=== PATIENT | male | born 1955 | race Caucasian/White ===

== ENCOUNTER 2020-01-28 00:24 | Emergency (ER) | payer MEDICAID, SELFPAY ==
[~2020-01-28] VITALS: Ht 170.2 cm; Wt 102.3 kg
[~2020-01-28 00:24] MED LIST: ASPI-1265 PO; CLOP75TA35 PO; LISI10TA4 PO; NITR0.4T51 SL; SIMV-42 PO
[2020-01-28 01:07] LABS: CLARITY,URINE CLEAR (Clear); COLOR,URINE YELLOW (Yellow); GLUCOSE, URINE NEGATIVE (Neg); KETONES,URINE NEGATIVE (Neg); LEUKOCYTE ESTERASE ,URINE NEGATIVE (Neg); NITRITES, URINE NEGATIVE (Neg); OCCULT BLOOD,URINE SMALL (Neg); PH,URINE 5.5 (4.8-8.0); PROTEIN,URINE NEGATIVE (Neg); UROBILINOGEN,URINE 0.2 E.U/dL (0.2-1.0)
[2020-01-28 01:09] LABS: BASOPHILS # (AUTO) 0.1 X10'3 (0-0.2); BASOPHILS % (AUTO) 0.6 % (0-1); EOSINOPHILS % (AUTO) 0.4 % (0-6); HEMATOCRIT 44.5 % (42.0-52.0); HEMOGLOBIN 15.3 g/dl (14.0-17.9); LYMPHOCYTES # (AUTO) 1.9 X10'3 (1.1-4.8); LYMPHOCYTES % (AUTO) 19.1 % (21-51); MEAN CORPUSCULAR HEMOGLOBIN 30.3 PG (27.0-31.0); MEAN CORPUSCULAR HGB CONC 34.4 g/dL (33.0-36.5); MEAN CORPUSCULAR VOLUME 88.3 FL (78-98); MEAN PLATELET VOLUME 9.1 FL (7.4-10.4); MONOCYTES # (AUTO) 0.8 X10'3 (0-0.9); MONOCYTES % (AUTO) 7.5 % (2-12); NEUTROPHILS # (AUTO) 7.3 X10'3 (1.8-7.7); NEUTROPHILS % (AUTO) 72.4 % (42-75); PLATELET COUNT 246 X10'3 (140-440); RED BLOOD COUNT 5.05 X10'6 (4.70-6.10); RED CELL DISTRIBUTION WIDTH 13.9 % (11.5-14.5); UA COLLECTION TYPE URINAL
[2020-01-28 01:14] LABS: BACTERIA,URINE FEW /HPF (Neg); RBC,URINE 0-2 /HPF (0-2); SQUAMOUS EPITHELIAL CELL,UR FEW /LPF (FEW); WBC,URINE 0-4 /HPF (0-4)
[2020-01-28 01:17] LABS: ALANINE AMINOTRANSFERASE 51 U/L (12-78); ALBUMIN 4.3 G/DL (3.4-5.0); ALBUMIN/GLOBULIN RATIO 1.2 (1.1-1.5); ALKALINE PHOSPHATASE 83 IU/L (46-116); ANION GAP 12 (8-16); ASPARTATE AMINO TRANSFERASE 19 U/L (10-37); BILIRUBIN,TOTAL 0.7 MG/DL (0.1-1.0); BLOOD UREA NITROGEN 22 MG/DL (7-18); BUN/CREATININE RATIO 17.9 (5.4-32.0); CALCIUM 9.4 MG/DL (8.5-10.1); CHLORIDE 104 MMOL/L (99-107); CREATININE 1.23 MG/DL (0.60-1.10); GLUCOSE 155 MG/DL (70-104); LIPASE 87 U/L (73-393); POTASSIUM 3.9 MMOL/L (3.5-5.1); SODIUM 140 MMOL/L (135-145); TOTAL CARBON DIOXIDE 24.5 MMOL/L (24-32); TOTAL PROTEIN 7.9 G/DL (6.4-8.2); eGFR 59 ML/MIN
[2020-01-28] MEDS ORDERED: normal saline 1000ML IV soln IVB ONE (02:35)
[2020-01-28] MEDS ORDERED: pantoprazole 40 MG vial IV ONE (02:35)
[2020-01-28] MEDS ORDERED: morphine 4 MG/ML inj SYRINge IV ONE (02:35)
[2020-01-28] MEDS ORDERED: iohexol 300mg/ml 100ml inj. ONE (02:45)
[2020-01-28] MEDS ORDERED: ACET-3068 PO (04:54)
[2020-01-28 05:04] VITALS: BP 149/53
== END 2020-01-28 05:30 | disposition home or self-care (01) ==
LOC: ER 00:24
DX: R10.11 Right upper quadrant pain (principal); I25.10 Atherosclerotic heart disease of native coronary artery without angina pectoris; E78.00 Pure hypercholesterolemia, unspecified; I10 Essential (primary) hypertension; Z98.890 Other specified postprocedural states; Z79.82 Long term (current) use of aspirin; Z79.899 Other long term (current) drug therapy
CPT/HCPCS: 36415; 74177; 80053; 81001; 83690; 85025; 96361; 96374; 96375; 99285; C9113; J2270; J7030; Q9967

== ENCOUNTER 2020-02-08 07:20 | Inpatient (IN) | payer MEDICAID ==
[~2020-02-08] VITALS: Ht 172.7 cm; Wt 104.5 kg
[~2020-02-08 07:20] MED LIST changes: +ACET-3068 PO
[2020-02-08] MEDS ORDERED: ondansetron/PF 4mg/2ml inj IV ONE (08:00)
[2020-02-08] MEDS ORDERED: normal saline 1000ML IV soln IVB ONE ×2 (08:00→10:05)
[2020-02-08] MEDS ORDERED: famotidine/PF 10 mg/ml inj IV ONE (08:00)
[2020-02-08] MEDS ORDERED: pantoprazole 40 MG vial IV ONE (08:00)
[2020-02-08] MEDS: morphine 4 MG/ML inj SYRINge IV PRN ×2 (08:16→09:21)
[2020-02-08 08:24] LABS: BASOPHILS # (AUTO) 0.1 X10'3 (0-0.2); BASOPHILS % (AUTO) 0.5 % (0-1); EOSINOPHILS % (AUTO) 0.3 % (0-6); HEMOGLOBIN 15.4 g/dl (14.0-17.9); LYMPHOCYTES % (AUTO) 18.3 % (21-51); MEAN CORPUSCULAR HEMOGLOBIN 30.6 PG (27.0-31.0); MEAN CORPUSCULAR VOLUME 87.4 FL (78-98); MONOCYTES # (AUTO) 0.9 X10'3 (0-0.9); NEUTROPHILS % (AUTO) 72.9 % (42-75); PLATELET COUNT 282 X10'3 (140-440); RED BLOOD COUNT 5.04 X10'6 (4.70-6.10); RED CELL DISTRIBUTION WIDTH 13.4 % (11.5-14.5); WHITE BLOOD COUNT 10.9 X10'3 (4.5-11.0)
--- NOTE | 2020-02-08 08:26 | NUR ---
PT MEDICATED AND NOW US TECH IN ROOM FOR PROCEDURE
[2020-02-08 08:41] LABS: ALANINE AMINOTRANSFERASE 76 U/L (12-78); ALBUMIN 4.3 G/DL (3.4-5.0); ALBUMIN/GLOBULIN RATIO 1.3 (1.1-1.5); ALKALINE PHOSPHATASE 99 IU/L (46-116); ANION GAP 15 (8-16); ASPARTATE AMINO TRANSFERASE 23 U/L (10-37); BILIRUBIN,TOTAL 0.9 MG/DL (0.1-1.0); BLOOD UREA NITROGEN 21 MG/DL (7-18); CALCIUM 10.1 MG/DL (8.5-10.1); CHLORIDE 104 MMOL/L (99-107); CREATININE 1.31 MG/DL (0.60-1.10); GLUCOSE 155 MG/DL (70-104); LIPASE 67 U/L (73-393); POTASSIUM 3.9 MMOL/L (3.5-5.1); SODIUM 141 MMOL/L (135-145); TOTAL CARBON DIOXIDE 22.1 MMOL/L (24-32); TOTAL PROTEIN 7.7 G/DL (6.4-8.2); eGFR 55 ML/MIN
[2020-02-08] MEDS ORDERED: sincalide inj 2 MCG in normal saline 50ml IV soln 50 ML IV ONE (09:35)
[2020-02-08] MEDS ORDERED: ondansetron/PF 4mg/2ml inj IV PRN (10:15)
[2020-02-08] MEDS ORDERED: dextrose 5%-1/2 normal saline 1,000 ML IV SCH (10:15)
[2020-02-08] MEDS ORDERED: morphine 2 MG/ML inj. syringe IV PRN ×2 (10:15)
[2020-02-08] MEDS ORDERED: HYDROcodone/acetaminophen 5mg/325mg tablet PO PRN (10:15)
[2020-02-08] MEDS ORDERED: mag hydrox/Alum hydrox/simeth 30ml oral suspension PO PRN (10:15)
[2020-02-08] MEDS ORDERED: acetaminophen 325mg tablet PO PRN ×2 (10:15)
[2020-02-08] MEDS ORDERED: magnesium hydroxide 30ml (MOM) UD suspension PO PRN (10:15)
[2020-02-08] MEDS ORDERED: ATOR80TA PO (10:30)
[2020-02-08] MEDS ORDERED: LANS15CA18 PO (10:30)
[2020-02-08] MEDS ORDERED: FINA5TAB11 PO (10:30)
[2020-02-08] MEDS ORDERED: OXYB10TA4 PO (10:30)
[2020-02-08] MEDS ORDERED: FLO0.4C PO (10:30)
[2020-02-08] MEDS ORDERED: METF500T PO (10:30)
[2020-02-08] MEDS ORDERED: LISI-600 PO (10:30)
[2020-02-08] MEDS ORDERED: FLUT16SP11 BOTHNARES (10:30)
[2020-02-08] MEDS ORDERED: METO50TA7 PO (10:30)
[2020-02-08] MEDS ORDERED: HYDR12.55 PO (10:31)
[2020-02-08 10:57] LABS: TROPONIN I < 0.04 NG/ML (0.0-0.05)
[2020-02-08] MEDS ORDERED: LISI40TA4 PO (11:07)
--- NOTE | 2020-02-08 16:15 | NUR ---
PATIENT IS HAVING HIDA SCAN IN THE MORNING. PATIENT WILL BE NPO AFTER 0400 AND NO PAIN MEDS AFTER 0600, PER [facility]IC[facility] STAFF.
--- NOTE | 2020-02-08 16:33 | NUR ---
Patient on the unit from ER
[2020-02-08 16:35] VITALS: BP 143/71
[2020-02-08 16:45] LABS: HEMOGLOBIN A1C 6.4 % (4.5-6.2)
--- NOTE | 2020-02-08 18:32 | NUR ---
Problems reprioritized. Patient report given, questions answered & plan of care reviewed with Kaila FUENTES.
--- NOTE | 2020-02-08 18:37 | NUR ---
Patient in room [facility]. I have received report from Jessica FUENTES and had the opportunity to ask questions and assume patient care.
[2020-02-08 19:00] VITALS: BP 141/84
[2020-02-08 19:45] VITALS: BP 141/84
[2020-02-08] MEDS: finasteride 5mg tablet PO SCH (22:25)
[2020-02-08] MEDS: oxybutynin 5mg tablet PO SCH (22:25)
[2020-02-08] MEDS: atorvastatin 20mg tablet PO SCH (22:25)
[2020-02-08 23:00] VITALS: BP 115/82
[2020-02-09 06:04] LABS: BASOPHILS % (AUTO) 0.3 % (0-1); EOSINOPHILS % (AUTO) 0 % (0-6); HEMOGLOBIN 13.8 g/dl (14.0-17.9); LYMPHOCYTES # (AUTO) 1.2 X10'3 (1.1-4.8); LYMPHOCYTES % (AUTO) 11.4 % (21-51); MEAN CORPUSCULAR HEMOGLOBIN 29.8 PG (27.0-31.0); MEAN CORPUSCULAR HGB CONC 33.8 g/dL (33.0-36.5); MEAN CORPUSCULAR VOLUME 88.1 FL (78-98); MEAN PLATELET VOLUME 8.8 FL (7.4-10.4); MONOCYTES # (AUTO) 1.3 X10'3 (0-0.9); MONOCYTES % (AUTO) 12.3 % (2-12); NEUTROPHILS # (AUTO) 8.3 X10'3 (1.8-7.7); PLATELET COUNT 237 X10'3 (140-440); RED BLOOD COUNT 4.65 X10'6 (4.70-6.10); RED CELL DISTRIBUTION WIDTH 13.6 % (11.5-14.5); WHITE BLOOD COUNT 10.9 X10'3 (4.5-11.0)
[2020-02-09 06:33] LABS: ALANINE AMINOTRANSFERASE 579 U/L (12-78); ALBUMIN 3.3 G/DL (3.4-5.0); ALKALINE PHOSPHATASE 162 IU/L (46-116); ANION GAP 9 (8-16); ASPARTATE AMINO TRANSFERASE 352 U/L (10-37); BILIRUBIN,TOTAL 4.4 MG/DL (0.1-1.0); BLOOD UREA NITROGEN 15 MG/DL (7-18); BUN/CREATININE RATIO 13.8 (5.4-32.0); CALCIUM 8.6 MG/DL (8.5-10.1); CHLORIDE 109 MMOL/L (99-107); CREATININE 1.09 MG/DL (0.60-1.10); GLUCOSE 113 MG/DL (70-104); POTASSIUM 3.5 MMOL/L (3.5-5.1); SODIUM 142 MMOL/L (135-145); TOTAL CARBON DIOXIDE 24.3 MMOL/L (24-32); eGFR 68 ML/MIN
[2020-02-09 06:34] LABS: TOTAL PROTEIN 6.5 G/DL (6.4-8.2)
--- NOTE | 2020-02-09 06:46 | NUR ---
Problems reprioritized. Patient report given, questions answered & plan of care reviewed with perry RN.
[2020-02-09 08:00] VITALS: BP 123/66
[2020-02-09] MEDS: aspirin 81mg tab.chew PO SCH (08:00)
[2020-02-09] MEDS ORDERED: non-formulary drug (Oxybutynin Chloride (Ditropan Xl) 1 TAB) PO SCH (08:00)
[2020-02-09] MEDS: metoprolol succinate 25mg (24-HOUR) SR. Tablet PO SCH (08:00)
[2020-02-09] MEDS: tamsulosin 0.4mg capsule PO SCH (08:00)
[2020-02-09] MEDS: oxybutynin 5mg tablet PO SCH ×2 (08:00→20:30)
[2020-02-09] MEDS: HYDROchlorothiazide 12.5mg capsule PO SCH (08:00)
[2020-02-09] MEDS: lisinopril 20mg tablet PO SCH (08:00)
[2020-02-09] MEDS: piperacillin/tazo 4.5gm/100ml 100 ML IV SCH ×2 (09:52→16:16)
[2020-02-09 11:00] VITALS: BP 131/65
--- NOTE | 2020-02-09 12:59 | NUR ---
Nutrition consult: Pt with A1c 6.4%, DM education not warranted at this time. Pt denied wt loss or decrease in appetite per malnutrition risk screen with RN. Pt currently NPO. Will continue to follow. Addendum: 02/09/20 at [address] Amended: Links added.
--- NOTE | 2020-02-09 18:24 | NUR ---
Problems reprioritized. Patient report given, questions answered & plan of care reviewed with Xander FUENTES.
--- NOTE | 2020-02-09 18:30 | NUR ---
Patient in room [facility]. I have received report from ROBERT FUENTES and had the opportunity to ask questions and assume patient care.
[2020-02-09 20:00] VITALS: BP 152/74
[2020-02-09] MEDS: lactobacillus rhamnosus 10,000 MMU CELLS/CAPSULE PO SCH (20:30)
[2020-02-09] MEDS: atorvastatin 20mg tablet PO SCH (20:30)
[2020-02-09] MEDS: finasteride 5mg tablet PO SCH (20:30)
[2020-02-10] VITALS (20 sets, daily range): BP systolic 131–177; BP diastolic 63–93
[2020-02-10] MEDS: piperacillin/tazo 4.5gm/100ml 100 ML IV SCH ×4 (00:30→23:57)
[2020-02-10 06:01] LABS: BASOPHILS # (AUTO) 0.1 X10'3 (0-0.2); BASOPHILS % (AUTO) 0.6 % (0-1); EOSINOPHILS % (AUTO) 0.1 % (0-6); HEMOGLOBIN 14.4 g/dl (14.0-17.9); LYMPHOCYTES % (AUTO) 9.2 % (21-51); MEAN CORPUSCULAR HEMOGLOBIN 30.3 PG (27.0-31.0); MEAN CORPUSCULAR HGB CONC 34.2 g/dL (33.0-36.5); MEAN CORPUSCULAR VOLUME 88.6 FL (78-98); MEAN PLATELET VOLUME 8.7 FL (7.4-10.4); MONOCYTES # (AUTO) 1.2 X10'3 (0-0.9); NEUTROPHILS # (AUTO) 8.3 X10'3 (1.8-7.7); NEUTROPHILS % (AUTO) 79.1 % (42-75); PLATELET COUNT 240 X10'3 (140-440); RED BLOOD COUNT 4.75 X10'6 (4.70-6.10); RED CELL DISTRIBUTION WIDTH 13.8 % (11.5-14.5); WHITE BLOOD COUNT 10.5 X10'3 (4.5-11.0)
[2020-02-10 06:21] LABS: ALANINE AMINOTRANSFERASE 553 U/L (12-78); ALBUMIN 3.4 G/DL (3.4-5.0); ALBUMIN/GLOBULIN RATIO 0.9 (1.1-1.5); ALKALINE PHOSPHATASE 196 IU/L (46-116); ANION GAP 9 (8-16); ASPARTATE AMINO TRANSFERASE 260 U/L (10-37); BILIRUBIN,TOTAL 2.9 MG/DL (0.1-1.0); BLOOD UREA NITROGEN 13 MG/DL (7-18); BUN/CREATININE RATIO 10.2 (5.4-32.0); CALCIUM 9.3 MG/DL (8.5-10.1); CHLORIDE 107 MMOL/L (99-107); CREATININE 1.28 MG/DL (0.60-1.10); GLUCOSE 119 MG/DL (70-104); POTASSIUM 3.6 MMOL/L (3.5-5.1); SODIUM 141 MMOL/L (135-145); TOTAL CARBON DIOXIDE 24.6 MMOL/L (24-32); TOTAL PROTEIN 7.1 G/DL (6.4-8.2); eGFR 57 ML/MIN
--- NOTE | 2020-02-10 06:30 | NUR ---
Problems reprioritized. Patient report given, questions answered & plan of care reviewed with ROBERT RN.
--- NOTE | 2020-02-10 06:55 | NUR ---
Patient in room [facility]. I have received report from Xander FUENTES and had the opportunity to ask questions and assume patient care.
[2020-02-10] MEDS: oxybutynin 5mg tablet PO SCH ×2 (08:00→21:22)
[2020-02-10] MEDS: lactobacillus rhamnosus 10,000 MMU CELLS/CAPSULE PO SCH ×2 (08:00→21:22)
[2020-02-10] MEDS: finasteride 5mg tablet PO SCH (08:00)
[2020-02-10] MEDS: tamsulosin 0.4mg capsule PO SCH (08:00)
[2020-02-10] MEDS: HYDROchlorothiazide 12.5mg capsule PO SCH (08:00)
[2020-02-10] MEDS: lisinopril 20mg tablet PO SCH (08:00)
[2020-02-10] MEDS: aspirin 81mg tab.chew PO SCH (08:00)
[2020-02-10] MEDS: metoprolol succinate 25mg (24-HOUR) SR. Tablet PO SCH (08:00)
[2020-02-10] MEDS ORDERED: famotidine/PF 10 mg/ml inj IV ONE (09:55)
[2020-02-10 10:14] LABS: PARTIAL THROMBOPLASTIN TIME 26 SECONDS (22-32)
[2020-02-10] MEDS ORDERED: meperidine/PF 25mg/ml syringe IV PRN ×3 (15:30)
[2020-02-10] MEDS ORDERED: proCHLORperazine 10 MG/2 ml inj IV PRN (15:30)
[2020-02-10] MEDS ORDERED: morphine 2 MG/ML inj. syringe IV PRN (15:30)
[2020-02-10] MEDS ORDERED: ondansetron/PF 4mg/2ml inj IV PRN (15:30)
[2020-02-10] MEDS ORDERED: morphine 4 MG/ML inj SYRINge IV PRN (15:30)
[2020-02-10] MEDS ORDERED: ringers solution, lacted 1,000 ML IV SCH (15:30)
--- NOTE | 2020-02-10 16:16 | NUR ---
Report called to recover on this patient at this time.
[2020-02-10] MEDS ORDERED: BUPIVAcaine/PF 2.5 mg/ml (0.25%) 30ml vial ONE (16:38)
[2020-02-10] MEDS ORDERED: dexamethasone sod phosphate 10mg/ml inj ONE (16:47)
[2020-02-10] MEDS ORDERED: neostigmine methylsulfate 1 MG/ML 10ml vial ONE (16:47)
[2020-02-10] MEDS ORDERED: glycopyrrolate 0.2mg/ml inj ONE (16:47)
[2020-02-10] MEDS ORDERED: sevoflurane 250ml liquid IH ONE (16:47)
[2020-02-10] MEDS ORDERED: midazolam 2 mg/2 ml injection ONE (16:54)
[2020-02-10] MEDS ORDERED: LIDOcaine 2% (20mg/ml) 5ml vial ONE (16:55)
[2020-02-10] MEDS ORDERED: fentaNYL /PF 50mcg/ml 5ml ampule ONE (16:55)
[2020-02-10] MEDS ORDERED: propofol inj 20 ML IV ONE (16:55)
[2020-02-10] MEDS ORDERED: rocuronium 10mg/ml inj IV ONE (16:56)
[2020-02-10] MEDS ORDERED: ondansetron/PF 4mg/2ml inj ONE (17:10)
[2020-02-10] MEDS ORDERED: acetaminophen 1,000mg/100ml IV 100 ML IV ONE (18:08)
--- NOTE | 2020-02-10 18:28 | NUR ---
Received from OR via BED, accompanied by Anesthesiologist DR BARBER and report given by Anesthesiologist. PT DROWSY, DENIES PAIN, ABDOMEN W/4 LAP SITES W/MEDIPORE TAPE COVERING CDI. Addendum: 02/10/20 at 1935 by Raina Charlton RN Amended: Links added.
--- NOTE | 2020-02-10 18:50 | NUR ---
Problems reprioritized. Patient report given, questions answered & plan of care reviewed with Ashlyn FUENTES.
--- NOTE | 2020-02-10 20:08 | NUR ---
Report called to receiving nurse. Transferred via BED BY HUNTER GUERRERO, RECEIVING RN AT BEDSIDE TO RECEIVE PT. Special Issues communicated to receiving nurse. YES. Addendum: 02/10/20 at 2014 by Raina Charlton RN Amended: Links added.
[2020-02-10] MEDS: atorvastatin 20mg tablet PO SCH (21:22)
[2020-02-10] MEDS: HYDROcodone/acetaminophen 10/325mg tab PO PRN (22:23)
[2020-02-11] VITALS: BP_SYST 162; BP_SYST 167; BP_DIAS 83; BP_DIAS 88
[2020-02-11] MEDS ORDERED: normal saline 1000ml 1,000 ML IV SCH (02:00)
[2020-02-11 04:00] VITALS: BP 153/70
[2020-02-11] MEDS: HYDROcodone/acetaminophen 10/325mg tab PO PRN (04:44)
[2020-02-11 05:46] LABS: BASOPHILS % (AUTO) 0.1 % (0-1); EOSINOPHILS % (AUTO) 0 % (0-6); HEMOGLOBIN 14.5 g/dl (14.0-17.9); LYMPHOCYTES # (AUTO) 0.6 X10'3 (1.1-4.8); LYMPHOCYTES % (AUTO) 5.3 % (21-51); MEAN CORPUSCULAR HEMOGLOBIN 30.4 PG (27.0-31.0); MEAN CORPUSCULAR HGB CONC 34.4 g/dL (33.0-36.5); MEAN CORPUSCULAR VOLUME 88.5 FL (78-98); MEAN PLATELET VOLUME 9.1 FL (7.4-10.4); MONOCYTES # (AUTO) 0.8 X10'3 (0-0.9); MONOCYTES % (AUTO) 8.1 % (2-12); NEUTROPHILS % (AUTO) 86.5 % (42-75); PLATELET COUNT 230 X10'3 (140-440); RED BLOOD COUNT 4.75 X10'6 (4.70-6.10); RED CELL DISTRIBUTION WIDTH 13.6 % (11.5-14.5); WHITE BLOOD COUNT 10.4 X10'3 (4.5-11.0)
[2020-02-11 06:10] LABS: ALANINE AMINOTRANSFERASE 461 U/L (12-78); ALBUMIN/GLOBULIN RATIO 0.7 (1.1-1.5); ALKALINE PHOSPHATASE 194 IU/L (46-116); ANION GAP 9 (8-16); ASPARTATE AMINO TRANSFERASE 215 U/L (10-37); BILIRUBIN,TOTAL 1.6 MG/DL (0.1-1.0); BLOOD UREA NITROGEN 16 MG/DL (7-18); BUN/CREATININE RATIO 14.4 (5.4-32.0); CALCIUM 8.6 MG/DL (8.5-10.1); CHLORIDE 107 MMOL/L (99-107); CREATININE 1.11 MG/DL (0.60-1.10); GLUCOSE 151 MG/DL (70-104); POTASSIUM 3.9 MMOL/L (3.5-5.1); SODIUM 141 MMOL/L (135-145); TOTAL CARBON DIOXIDE 25.3 MMOL/L (24-32); TOTAL PROTEIN 7.1 G/DL (6.4-8.2); eGFR 67 ML/MIN
[2020-02-11 07:00] VITALS: BP 144/67
[2020-02-11] MEDS: lactobacillus rhamnosus 10,000 MMU CELLS/CAPSULE PO SCH (07:07)
[2020-02-11] MEDS: aspirin 81mg tab.chew PO SCH (07:07)
[2020-02-11] MEDS: piperacillin/tazo 4.5gm/100ml 100 ML IV SCH (07:07)
[2020-02-11] MEDS: metoprolol succinate 25mg (24-HOUR) SR. Tablet PO SCH (07:09)
[2020-02-11] MEDS: lisinopril 20mg tablet PO SCH (07:09)
[2020-02-11] MEDS: HYDROchlorothiazide 12.5mg capsule PO SCH (07:09)
[2020-02-11] MEDS: oxybutynin 5mg tablet PO SCH (08:00)
[2020-02-11] MEDS: finasteride 5mg tablet PO SCH (08:00)
[2020-02-11] MEDS ORDERED: HYDR-4383 PO (09:07)
--- NOTE | 2020-02-11 10:06 | NUR ---
Problems reprioritized. Patient report given, questions answered & plan of care reviewed with Letty FUENTES.
--- NOTE | 2020-02-11 10:15 | NUR ---
Patient in room [facility]. I have received report from ALFREDO Hill, and had the opportunity to ask questions and assume patient care.
[2020-02-11] MEDS: tamsulosin 0.4mg capsule PO SCH (10:44)
[2020-02-11 11:00] VITALS: BP 117/63
[2020-02-11] MEDS ORDERED: finasteride 5mg tablet PO SCH (21:00)
== END 2020-02-11 15:23 | disposition home or self-care (01) | DRG 263 ==
LOC: ER 07:21 → ED HOLD 10:14 → SUR 3N 16:28 → OBSVTOIN 02-09 09:30
PROVIDERS: ADMIT Internal Medicine; ATTEND Internal Medicine
PROC: 0FT44ZZ Resection of Gallbladder, Percutaneous Endoscopic Approach (ICD-10-PCS; principal; 2020-02-10 16:47)
DX: K80.70 Calculus of gallbladder and bile duct without cholecystitis without obstruction (principal); E11.65 Type 2 diabetes mellitus with hyperglycemia; E78.00 Pure hypercholesterolemia, unspecified; E78.5 Hyperlipidemia, unspecified; I10 Essential (primary) hypertension; I25.10 Atherosclerotic heart disease of native coronary artery without angina pectoris; I25.2 Old myocardial infarction; Z79.899 Other long term (current) drug therapy; N28.9 Disorder of kidney and ureter, unspecified; N40.0 Benign prostatic hyperplasia without lower urinary tract symptoms; Z79.82 Long term (current) use of aspirin; Z79.84 Long term (current) use of oral hypoglycemic drugs; Z83.3 Family history of diabetes mellitus; Z87.891 Personal history of nicotine dependence; Z90.49 Acquired absence of other specified parts of digestive tract; Z95.5 Presence of coronary angioplasty implant and graft
CPT/HCPCS: 36415; 71045; 74181; 76700; 80053; 82948; 83036; 83605; 83690; 83880; 84484; 85025; 85610; 85730; 87081; 87635; 93005; 96374; 96375; 99285; A4215; A4618; A7000; C9113; G0378; J0131; J1100; J2001; J2175; J2250; J2270; J2405; J2543; J2704; J2710; J3010; J3490; J7030; J7120

== ENCOUNTER 2020-07-25 07:48 | Emergency (ER) | payer MEDICAID ==
[~2020-07-25] VITALS: Ht 170.2 cm; Wt 98.4 kg
[~2020-07-25 07:48] MED LIST changes: -ACET-3068 PO; +ATOR80TA PO; -CLOP75TA35 PO; +FINA5TAB11 PO; +FLO0.4C PO; +FLUT16SP11 BOTHNARES; +HYDR-4383 PO; +HYDR12.55 PO; +LANS15CA18 PO; -LISI10TA4 PO; +LISI40TA13 PO; +METF500T PO; +METO50TA7 PO; +OXYB10TA4 PO; -SIMV-42 PO
[2020-07-25 08:58] LABS: CLARITY,URINE CLEAR (Clear); COLOR,URINE YELLOW (Yellow); GLUCOSE, URINE NEGATIVE (Neg); KETONES,URINE NEGATIVE (Neg); LEUKOCYTE ESTERASE ,URINE NEGATIVE (Neg); NITRITES, URINE NEGATIVE (Neg); OCCULT BLOOD,URINE TRACE-INTACT (Neg); PROTEIN,URINE NEGATIVE (Neg); UROBILINOGEN,URINE 0.2 E.U/dL (0.2-1.0)
[2020-07-25 09:05] LABS: UA COLLECTION TYPE NON-SPECIFIED
[2020-07-25 09:08] LABS: SQUAMOUS EPITHELIAL CELL,UR FEW /LPF (FEW)
[2020-07-25 09:09] LABS: BACTERIA,URINE FEW /HPF (Neg); RBC,URINE 0-2 /HPF (0-2); WBC,URINE 0-4 /HPF (0-4)
[2020-07-25 09:14] LABS: BASOPHILS # (AUTO) 0.1 X10'3 (0-0.2); EOSINOPHILS # (AUTO) 0.1 X10'3 (0-0.9); EOSINOPHILS % (AUTO) 1.7 % (0-6); HEMATOCRIT 47.9 % (42.0-52.0); HEMOGLOBIN 16.2 g/dl (14.0-17.9); LYMPHOCYTES # (AUTO) 2.2 X10'3 (1.1-4.8); LYMPHOCYTES % (AUTO) 37.3 % (21-51); MEAN CORPUSCULAR HEMOGLOBIN 29.9 PG (27.0-31.0); MEAN CORPUSCULAR HGB CONC 33.9 g/dL (33.0-36.5); MEAN CORPUSCULAR VOLUME 88.2 FL (78-98); MEAN PLATELET VOLUME 9.1 FL (7.4-10.4); MONOCYTES # (AUTO) 0.7 X10'3 (0-0.9); MONOCYTES % (AUTO) 11.5 % (2-12); NEUTROPHILS # (AUTO) 2.9 X10'3 (1.8-7.7); NEUTROPHILS % (AUTO) 48.5 % (42-75); PLATELET COUNT 220 X10'3 (140-440); RED BLOOD COUNT 5.43 X10'6 (4.70-6.10); RED CELL DISTRIBUTION WIDTH 13.8 % (11.5-14.5)
--- NOTE | 2020-07-25 09:44 | NUR ---
PT DIDNT TAKE BP MEDICATION TODAY.
[2020-07-25 10:02] LABS: ALANINE AMINOTRANSFERASE 47 U/L (12-78); ALBUMIN 3.9 G/DL (3.4-5.0); ALBUMIN/GLOBULIN RATIO 1.1 (1.1-1.5); ALKALINE PHOSPHATASE 74 IU/L (46-116); ANION GAP 12 (8-16); ASPARTATE AMINO TRANSFERASE 22 U/L (10-37); BILIRUBIN,TOTAL 0.8 MG/DL (0.1-1.0); BLOOD UREA NITROGEN 20 MG/DL (7-18); BUN/CREATININE RATIO 17.9 (5.4-32.0); CHLORIDE 106 MMOL/L (99-107); CREATININE 1.12 MG/DL (0.60-1.10); GLUCOSE 106 MG/DL (70-104); POTASSIUM 3.8 MMOL/L (3.5-5.1); SODIUM 144 MMOL/L (135-145); TOTAL CARBON DIOXIDE 26.1 MMOL/L (24-32); TOTAL PROTEIN 7.5 G/DL (6.4-8.2); eGFR 66 ML/MIN
[2020-07-25 10:07] LABS: LIPASE 62 U/L (73-393)
[2020-07-25] MEDS ORDERED: IBUP-1984 PO (10:31)
[2020-07-25] MEDS ORDERED: CYCL-1 PO (10:31)
[2020-07-25 11:01] VITALS: BP 141/61
== END 2020-07-25 11:03 | disposition home or self-care (01) ==
LOC: ER 07:49
DX: R10.84 Generalized abdominal pain (principal); K59.00 Constipation, unspecified; I25.10 Atherosclerotic heart disease of native coronary artery without angina pectoris; E78.00 Pure hypercholesterolemia, unspecified; I10 Essential (primary) hypertension; E11.9 Type 2 diabetes mellitus without complications; Z98.890 Other specified postprocedural states; Z79.82 Long term (current) use of aspirin; Z79.899 Other long term (current) drug therapy
CPT/HCPCS: 36415; 74176; 80053; 81001; 83690; 85025; 99284

== ENCOUNTER 2021-11-02 14:04 | Emergency (ER) | payer MEDICARE, MEDICAID ==
[~2021-11-02] VITALS: Ht 170.2 cm; Wt 100.0 kg
[~2021-11-02 14:04] MED LIST changes: +CYCL-1 PO
[2021-11-02 14:18] VITALS: BP 132/76
[2021-11-02 15:42] LABS: BASOPHILS # (AUTO) 0.1 X10'3 (0-0.2); BASOPHILS % (AUTO) 0.8 % (0-1); EOSINOPHILS % (AUTO) 0.4 % (0-6); HEMATOCRIT 48.2 % (42.0-52.0); HEMOGLOBIN 16.3 g/dl (14.0-17.9); LYMPHOCYTES # (AUTO) 1.3 X10'3 (1.1-4.8); LYMPHOCYTES % (AUTO) 17.6 % (21-51); MEAN CORPUSCULAR HEMOGLOBIN 29.7 PG (27.0-31.0); MEAN CORPUSCULAR HGB CONC 33.8 g/dL (33.0-36.5); MEAN CORPUSCULAR VOLUME 87.9 FL (78-98); MEAN PLATELET VOLUME 9.1 FL (7.4-10.4); MONOCYTES # (AUTO) 1.1 X10'3 (0-0.9); MONOCYTES % (AUTO) 14.7 % (2-12); NEUTROPHILS % (AUTO) 66.5 % (42-75); PLATELET COUNT 236 X10'3 (140-440); RED BLOOD COUNT 5.49 X10'6 (4.70-6.10); RED CELL DISTRIBUTION WIDTH 13.5 % (11.5-14.5); WHITE BLOOD COUNT 7.5 X10'3 (4.5-11.0)
[2021-11-02 16:00] LABS: ALBUMIN 4.2 G/DL (3.4-5.0); ALKALINE PHOSPHATASE 235 IU/L (46-116); ANION GAP 9 (8-16); ASPARTATE AMINO TRANSFERASE 470 U/L (10-37); BILIRUBIN,TOTAL 3.7 MG/DL (0.1-1.0); BLOOD UREA NITROGEN 15 MG/DL (7-18); BUN/CREATININE RATIO 12.5 (5.4-32.0); CALCIUM 9.2 MG/DL (8.5-10.1); CHLORIDE 100 MMOL/L (99-107); GLUCOSE 122 MG/DL (70-104); LIPASE 136 U/L (73-393); POTASSIUM 3.6 MMOL/L (3.5-5.1); SODIUM 138 MMOL/L (135-145); TOTAL CARBON DIOXIDE 28.7 MMOL/L (24-32); TOTAL PROTEIN 8.4 G/DL (6.4-8.2); eGFR 61 ML/MIN
[2021-11-02 16:01] LABS: ALANINE AMINOTRANSFERASE 1121 U/L (12-78)
--- NOTE | 2021-11-02 19:39 | NUR ---
PT LEFT PER REGISTRATION
== END 2021-11-02 19:41 | disposition left against medical advice (07) ==
LOC: ER 14:04
DX: R10.13 Epigastric pain (principal); Z53.21 Procedure and treatment not carried out due to patient leaving prior to being seen by health care provider
CPT/HCPCS: 36415; 74176; 80053; 83690; 84484; 85025

== ENCOUNTER 2023-10-09 10:37 | Day surgery (SDC) | payer MEDICARE, MEDICAID ==
[2023-10-09] VITALS (10 sets, daily range): BP systolic 126–144; BP diastolic 62–84; PULSE 62–85; RESP 12–14; TEMP 98.4; O2SAT 93–98
[~2023-10-09] VITALS: Ht 170.2 cm; Wt 101.7 kg
[~2023-10-09 10:37] MED LIST changes: -CYCL-1 PO; -FINA5TAB11 PO; +HYDR-3965 PO; -HYDR-4383 PO; -HYDR12.55 PO; -LANS15CA18 PO; -METF500T PO; -METO50TA7 PO; -OXYB10TA4 PO
[2023-10-09] MEDS: normal saline 1,000 ML IV SCH (10:55)
[2023-10-09] MEDS ORDERED: nitroGLYCERIN 0.4mg SUBLingual tab SL PRN ×2 (10:55→15:35)
[2023-10-09 11:34] LABS: BASOPHILS # (AUTO) 0.1 X10'3 (0-0.2); EOSINOPHILS # (AUTO) 0.1 X10'3 (0-0.9); LYMPHOCYTES # (AUTO) 2.3 X10'3 (1.1-4.8); MEAN CORPUSCULAR HEMOGLOBIN 29.4 PG (27.0-31.0); NEUTROPHILS # (AUTO) 3.2 X10'3 (1.8-7.7)
[2023-10-09 11:35] LABS: BASOPHILS % (AUTO) 1.3 % (0-1); EOSINOPHILS % (AUTO) 1.3 % (0-6); HEMATOCRIT 46.4 % (42.0-52.0); HEMOGLOBIN 15.4 g/dl (14.0-17.9); LYMPHOCYTES % (AUTO) 36.6 % (21-51); MEAN CORPUSCULAR HGB CONC 33.1 g/dL (33.0-36.5); MEAN CORPUSCULAR VOLUME 88.7 FL (78-98); MEAN PLATELET VOLUME 8.4 FL (7.4-10.4); MONOCYTES # (AUTO) 0.6 X10'3 (0-0.9); MONOCYTES % (AUTO) 10.2 % (2-12); NEUTROPHILS % (AUTO) 50.6 % (42-75); PLATELET COUNT 237 X10'3 (140-440); RED BLOOD COUNT 5.23 X10'6 (4.70-6.10); RED CELL DISTRIBUTION WIDTH 13.4 % (11.5-14.5); WHITE BLOOD COUNT 6.2 X10'3 (4.5-11.0)
[2023-10-09 11:43] LABS: ALBUMIN 4.1 G/DL (3.4-5.0); ANION GAP 6 (8-16); BLOOD UREA NITROGEN 16 MG/DL (7-18); BUN/CREATININE RATIO 13.6 (10.0-20.0); CALCIUM 9.2 MG/DL (8.5-10.1); CHLORIDE 105 MMOL/L (99-107); CREATININE 1.18 MG/DL (0.60-1.10); GLUCOSE 126 MG/DL (70-104); POTASSIUM 3.9 MMOL/L (3.5-5.1); SODIUM 138 MMOL/L (135-145); TOTAL CARBON DIOXIDE 27.1 MMOL/L (24-32); eCRCL 57 ML/MIN; eGFR 62 ML/MIN
[2023-10-09 11:47] LABS: APTT 26 SECONDS (22-32); PROTHROMBIN TIME 10.7 SECONDS (9.0-12.0)
[2023-10-09] MEDS ORDERED: LISI20TA28 PO (11:51)
[2023-10-09] MEDS ORDERED: FINA5TAB11 PO (11:53)
[2023-10-09] MEDS ORDERED: HYDR12.55 PO (11:53)
[2023-10-09] MEDS ORDERED: MIRA50TA PO (11:53)
[2023-10-09] MEDS ORDERED: PANT20TA18 PO (11:55)
[2023-10-09] MEDS ORDERED: ATOR40TA72 PO (11:55)
[2023-10-09] MEDS ORDERED: METF-1203 PO (11:55)
[2023-10-09] MEDS ORDERED: FLUT16SP26 (11:55)
[2023-10-09] MEDS ORDERED: NITR0.4T48 (11:56)
[2023-10-09] MEDS ORDERED: FLO0.4C (11:57)
[2023-10-09] MEDS: LORazepam 0.5 MG tablet PO PRN (12:22)
[2023-10-09] MEDS: diphenhydrAMINE 25mg capsule PO PRN (12:22)
[2023-10-09] MEDS ORDERED: fentaNYL/PF 50MCG/1 ML 2ML syringe ONE (13:35)
[2023-10-09] MEDS ORDERED: LIDOcaine 1% 30ml preserv. free vial ONE (13:35)
[2023-10-09] MEDS ORDERED: iohexol 350MG/ML 100ml bottle IV ONE (13:35)
[2023-10-09] MEDS ORDERED: iohexol 350 MG/ML 50ML vial IV ONE ×2 (13:35→14:39)
[2023-10-09] MEDS ORDERED: midazolam 1 mg/ML 2ml injection ONE (13:35)
[2023-10-09 14:51] LABS: PRO BRAIN NATRIURETIC PEPTIDE 76 PG/ML (0-125)
[2023-10-09 14:59] LABS: ISTAT HGB ART 14.3 g/dl (14.0-17.9); ISTAT Hct ART 42 %PCV (42-52); ISTAT O2 SATURATION ARTERIAL 96 % (95-98); ISTAT SOURCE ART
[2023-10-09] MEDS ORDERED: HYDROcodone/acetaminophen 5mg/325mg tablet PO PRN (15:35)
[2023-10-09] MEDS ORDERED: normal saline 1000ml 1,000 ML IV SCH (15:35)
[2023-10-09] MEDS ORDERED: HYDROcodone/acetaminophen 10/325mg tab PO PRN (15:35)
[2023-10-09] MEDS ORDERED: ondansetron/PF 4mg/2ml inj IV PRN (15:35)
[2023-10-09] MEDS ORDERED: OXAZEpam 15mg capsule PO PRN (15:35)
[2023-10-09] MEDS ORDERED: proCHLORperazine 10 MG/2 ml inj IV PRN (15:35)
== END 2023-10-09 19:55 | disposition home or self-care (01) ==
LOC: SSTAY O 10:37
PROVIDERS: ATTEND Internal Medicine Cardiovascular Disease
DX: I35.0 Nonrheumatic aortic (valve) stenosis (principal); I25.10 Atherosclerotic heart disease of native coronary artery without angina pectoris; I10 Essential (primary) hypertension; E78.5 Hyperlipidemia, unspecified; E66.9 Obesity, unspecified; Z86.73 Personal history of transient ischemic attack (TIA), and cerebral infarction without residual deficits; Z68.35 Body mass index [BMI] 35.0-35.9, adult
CPT/HCPCS: 36415; 71046; 80048; 82803; 82948; 83880; 84484; 85014; 85025; 85610; 85730; 93005; 93460; 93567; 93880; 99152; 99153; A6258; C1751; C1760; C1769; J1644; J2001; J2250; J3010; J7030; Q0163; Q9967; Z7610; J3490

== ENCOUNTER 2023-11-05 09:28 | Outpatient (CLI) | payer MEDICARE, MEDICAID ==
[~2023-11-05 09:28] MED LIST changes: +ATOR40TA72 PO; -ATOR80TA PO; +FINA5TAB11 PO; +FLO0.4C; -FLO0.4C PO; -FLUT16SP11 BOTHNARES; +FLUT16SP26; -HYDR-3965 PO; +HYDR12.55 PO; +LISI20TA28 PO; -LISI40TA13 PO; +METF-1203 PO; +MIRA50TA PO; +NITR0.4T48; -NITR0.4T51 SL; +PANT20TA18 PO
[2023-11-05 10:11] LABS: BASOPHILS # (AUTO) 0.1 X10'3 (0-0.2); EOSINOPHILS # (AUTO) 0.1 X10'3 (0-0.9); EOSINOPHILS % (AUTO) 1.1 % (0-6); HEMATOCRIT 45.2 % (42.0-52.0); HEMOGLOBIN 15.2 g/dl (14.0-17.9); LYMPHOCYTES # (AUTO) 1.8 X10'3 (1.1-4.8); LYMPHOCYTES % (AUTO) 28.8 % (21-51); MEAN CORPUSCULAR HEMOGLOBIN 29.8 PG (27.0-31.0); MEAN CORPUSCULAR HGB CONC 33.7 g/dL (33.0-36.5); MEAN CORPUSCULAR VOLUME 88.2 FL (78-98); MEAN PLATELET VOLUME 8.3 FL (7.4-10.4); MONOCYTES # (AUTO) 0.7 X10'3 (0-0.9); MONOCYTES % (AUTO) 10.6 % (2-12); NEUTROPHILS # (AUTO) 3.6 X10'3 (1.8-7.7); NEUTROPHILS % (AUTO) 58.5 % (42-75); PLATELET COUNT 228 X10'3 (140-440); RED BLOOD COUNT 5.12 X10'6 (4.70-6.10); RED CELL DISTRIBUTION WIDTH 13.7 % (11.5-14.5); WHITE BLOOD COUNT 6.2 X10'3 (4.5-11.0)
[2023-11-05 10:12] LABS: APTT 25 SECONDS (22-32); INR 0.9 INR; PROTHROMBIN TIME 10.2 SECONDS (9.0-12.0)
[2023-11-05 10:23] LABS: ALANINE AMINOTRANSFERASE 51 U/L (12-78); ALBUMIN 3.9 G/DL (3.4-5.0); ALBUMIN/GLOBULIN RATIO 1.1 (1.1-1.5); ALKALINE PHOSPHATASE 66 IU/L (46-116); ANION GAP 11 (8-16); ASPARTATE AMINO TRANSFERASE 25 U/L (10-37); BILIRUBIN,TOTAL 0.7 MG/DL (0.1-1.0); BLOOD UREA NITROGEN 22 MG/DL (7-18); BUN/CREATININE RATIO 17.5 (10.0-20.0); CALCIUM 9.2 MG/DL (8.5-10.1); CHLORIDE 104 MMOL/L (99-107); CREATININE 1.26 MG/DL (0.60-1.10); GLUCOSE 167 MG/DL (70-104); POTASSIUM 4.2 MMOL/L (3.5-5.1); PRO BRAIN NATRIURETIC PEPTIDE 70 PG/ML (0-125); SODIUM 141 MMOL/L (135-145); TOTAL CARBON DIOXIDE 25.9 MMOL/L (24-32); TOTAL PROTEIN 7.4 G/DL (6.4-8.2); eGFR 57 ML/MIN
[2023-11-05] MEDS ORDERED: IODIXANOL 320 MG/ML INFUS..BTL 100ML IV ONE (10:45)
== END 2023-11-05 23:59 | disposition home or self-care (01) ==
LOC: RAD 09:28
PROVIDERS: ATTEND Internal Medicine Cardiovascular Disease
DX: I35.0 Nonrheumatic aortic (valve) stenosis (principal); R91.1 Solitary pulmonary nodule; K40.90 Unilateral inguinal hernia, without obstruction or gangrene, not specified as recurrent; M47.815 Spondylosis without myelopathy or radiculopathy, thoracolumbar region; R06.02 Shortness of breath; I65.29 Occlusion and stenosis of unspecified carotid artery
CPT/HCPCS: 36415; 71275; 74174; 75572; 80053; 83880; 85025; 85610; 85730; Q9967

== ENCOUNTER 2024-01-17 07:21 | Inpatient (IN) | payer MEDICARE, MEDICAID ==
[2024-01-13 10:48] LABS: BASOPHILS # (AUTO) 0.1 X10'3 (0-0.2); BASOPHILS % (AUTO) 0.7 % (0-1); EOSINOPHILS # (AUTO) 0.1 X10'3 (0-0.9); EOSINOPHILS % (AUTO) 1.6 % (0-6); LYMPHOCYTES # (AUTO) 2.5 X10'3 (1.1-4.8); LYMPHOCYTES % (AUTO) 34.1 % (21-51); MEAN CORPUSCULAR HEMOGLOBIN 29.8 PG (27.0-31.0); MEAN CORPUSCULAR VOLUME 87.7 FL (78-98); MEAN PLATELET VOLUME 8.3 FL (7.4-10.4); MONOCYTES # (AUTO) 0.9 X10'3 (0-0.9); MONOCYTES % (AUTO) 12.3 % (2-12); NEUTROPHILS # (AUTO) 3.8 X10'3 (1.8-7.7); NEUTROPHILS % (AUTO) 51.3 % (42-75); PRE OP HEMATOCRIT 44.1 % (42.0-52.0); PRE OP PLATELET COUNT 242 X10'3 (140-440); PRE OP WHITE BLOOD COUNT 7.4 10'3 (4.8-10.8); RED BLOOD COUNT 5.03 X10'6 (4.70-6.10); RED CELL DISTRIBUTION WIDTH 13.4 % (11.5-14.5)
[2024-01-13 10:54] LABS: PRE OP PROTIME 10.2 SECONDS (9.0-12.0)
[2024-01-13 11:05] LABS: ALBUMIN 4.1 G/DL (3.4-5.0); ALBUMIN/GLOBULIN RATIO 1.1 (1.1-1.5); ALKALINE PHOSPHATASE 74 IU/L (46-116); BLOOD UREA NITROGEN 18 MG/DL (7-18); CALCIUM 9.6 MG/DL (8.5-10.1); CHLORIDE 104 MMOL/L (99-107); CREATININE 1.29 MG/DL (0.60-1.10); PRE OP ALT 33 U/L (30-65); PRE OP ANION GAP 8 (8-16); PRE OP AST 19 U/L (10-37); PRE OP BILIRUB, TOTAL 0.8 MG/DL (0.0-1.0); PRE OP GLUCOSE 150 MG/DL (70-104); PRE OP POTASSIUM 3.6 MMOL/L (3.4-5.1); PRE OP SODIUM 143 MMOL/L (135-145); PRO BRAIN NATRIURETIC PEPTIDE 161 PG/ML (0-125); TOTAL CARBON DIOXIDE 30.7 MMOL/L (24-32); TOTAL PROTEIN 7.8 G/DL (6.4-8.2); eGFR 56 ML/MIN
[2024-01-13 11:05] LABS: BILIRUBIN,URINE NEGATIVE (Neg); CLARITY,URINE CLEAR (Clear); COLOR,URINE YELLOW (Yellow); GLUCOSE, URINE 250 mg/dl (Neg); KETONES,URINE NEGATIVE (Neg); LEUKOCYTE ESTERASE ,URINE NEGATIVE (Neg); NITRITES, URINE NEGATIVE (Neg); OCCULT BLOOD,URINE NEGATIVE (Neg); PROTEIN,URINE NEGATIVE (Neg); UROBILINOGEN,URINE 0.2 E.U/dL (0.2-1.0)
[2024-01-13 11:13] LABS: UA COLLECTION TYPE CLN CATCH MIDSTREAM
[2024-01-13 11:15] LABS: HEMOGLOBIN A1C 6.5 % (4.5-6.2)
[~2024-01-17] VITALS: Ht 170.2 cm; Wt 101.5 kg
[2024-01-17] VITALS (28 sets, daily range): BP systolic 137–180; BP diastolic 63–95; PULSE 64–84; RESP 10–20; TEMP 97.7–97.8; O2SAT 92–100
[2024-01-17] MEDS: ceFAZolin 2gm in dextrose, iso 50 ML IV ONE (05:30)
[~2024-01-17 07:21] MED LIST changes: -FLO0.4C; +FLO0.4C PO; -FLUT16SP26; -NITR0.4T48; +NITR0.4T48 SL; +ondansetron/PF 4mg/2ml inj IV PRN; +protamine sulfate 10mg/ml inj. ONE
[2024-01-17] MEDS: clopidogrel 300mg tablet PO ONE (08:46)
[2024-01-17] MEDS: famotidine 20mg tablet PO ONE (08:46)
[2024-01-17] MEDS: aspirin 325mg tablet PO ONE (08:46)
[2024-01-17] MEDS: NORMAL SALINE IV ONE (08:48)
[2024-01-17] MEDS: ringers solution, lacted 1,000 ML IV SCH ×2 (08:48→11:40)
[2024-01-17] MEDS: VANCOMYCIN IV ONE (08:48)
[2024-01-17] MEDS ORDERED: morphine 2 MG/ML inj. syringe IV PRN (09:15)
[2024-01-17] MEDS ORDERED: proCHLORperazine 10 MG/2 ml inj IV PRN ×2 (09:15→11:40)
[2024-01-17] MEDS ORDERED: meperidine/PF 25mg/ml syringe IV PRN ×2 (09:15)
[2024-01-17] MEDS ORDERED: labetalol 20mg/4ml (5mg/ml) syringe IV PRN (09:15)
[2024-01-17] MEDS ORDERED: morphine 4 MG/ML inj SYRINge IV PRN (09:15)
[2024-01-17] MEDS ORDERED: LIDOcaine 1% (10mg/ml) 2ml vial ONE (09:40)
[2024-01-17] MEDS ORDERED: iohexol 350MG/ML 100ml bottle IV ONE (10:02)
[2024-01-17] MEDS ORDERED: heparin 1,000 UNITS/NS 500ml 1,500 ML ONE (10:03)
[2024-01-17] MEDS ORDERED: midazolam 1 mg/ML 2ml injection ONE (10:11)
[2024-01-17] MEDS ORDERED: fentaNYL/PF 50MCG/1 ML 2ML syringe ONE (10:11)
[2024-01-17] MEDS ORDERED: heparin 1,000unit/ml 10ml vial 10 ML ONE (10:27)
[2024-01-17] MEDS ORDERED: propofol inj 20 ML IV ONE (10:27)
[2024-01-17] MEDS ORDERED: labetalol 20mg/4ml (5mg/ml) syringe IV ONE (11:33)
[2024-01-17] MEDS ORDERED: acetaminophen 325mg tablet PO PRN (11:40)
[2024-01-17] MEDS ORDERED: potassium Cl 20mEq/100mL bag 100 ML IV PRN (11:40)
[2024-01-17] MEDS ORDERED: docusate sod 100mg capsule PO PRN (11:40)
[2024-01-17] MEDS ORDERED: magnesium sulf-water 2g/50mL 50 ML IV PRN (11:40)
[2024-01-17] MEDS ORDERED: potassium Cl 40MEQ/270ML bag 250 ML IV PRN (11:40)
[2024-01-17] MEDS ORDERED: potassium Cl 40MEQ/1/2NS 520ml 520 ML IV PRN (11:40)
[2024-01-17] MEDS ORDERED: magnesium sulf-water 4G/100mL 100 ML IV PRN (11:40)
[2024-01-17] MEDS ORDERED: DEXTROSE 15 GM of carb/4 tabs (each vial/BOTTLE has 4 tablets) PO PRN ×2 (11:40)
[2024-01-17] MEDS: phenylephrine inj 50 MG in normal saline 250ml IV solN IV SCH (11:40)
[2024-01-17] MEDS ORDERED: HYDROcodone/acetaminophen 5mg/325mg tablet PO PRN (11:40)
[2024-01-17] MEDS ORDERED: dextrose 50%-water 50ml dispensing syringe IV PRN ×2 (11:40)
[2024-01-17] MEDS ORDERED: pantoprazole 40mg Tablet.DR PO PRN (11:40)
[2024-01-17] MEDS ORDERED: glucagon, human recombinant 1mg kit SUBCUT PRN (11:40)
[2024-01-17] MEDS ORDERED: potassium CL 10mEq/100ml bag 100 ML IV PRN (11:40)
[2024-01-17] MEDS ORDERED: ALPRAZolam 0.25mg tablet PO PRN (11:40)
[2024-01-17] MEDS ORDERED: potassium Cl 20 mEq SR tablet PO PRN (11:40)
[2024-01-17] MEDS ORDERED: diphenhydrAMINE 25mg capsule PO PRN (11:40)
[2024-01-17] MEDS: nitroPRUSSIDE (NIPRIDE) (200MCG/ML) 100ML Drip IV SCH (11:40)
[2024-01-17] MEDS: INSULIN LISPRO 100 UNIT/ML INSULN.PEN MULTI-DOSE SQ SCH ×2 (12:00→12:30)
[2024-01-17] MEDS: hydrALAZINE 20mg/ml inj. IV PRN (12:01)
[2024-01-17] MEDS: meperidine/PF 25mg/ml syringe IV PRN (12:09)
[2024-01-17] MEDS: enalaprilat dihydrate 2.5mg/2ml vial IV PRN (12:26)
[2024-01-17] MEDS: ondansetron/PF 4mg/2ml inj IV PRN ×2 (13:05→16:15)
[2024-01-17] MEDS: normal saline 1000ml 1,000 ML IV SCH (13:39)
[2024-01-17] MEDS: ceFAZolin 1GM/D5W- ADD-VANTAGE 50 ML IV SCH (16:16)
[2024-01-17] MEDS: labetalol 20mg/4ml (5mg/ml) syringe IV PRN (16:16)
[2024-01-17] MEDS: sod chloride 0.9% 10ml flush syringe IV SCH (16:36)
[2024-01-17] MEDS ORDERED: nitroGLYCERIN 0.4mg SUBLingual tab SL PRN (18:55)
[2024-01-17] MEDS: atorvastatin 20mg tablet PO SCH (20:37)
[2024-01-17] MEDS: VANCOMYCIN 1GM 200ML H20 (PEG) 200 ML IV SCH (20:37)
[2024-01-17] MEDS: tamsulosin 0.4mg capsule PO SCH (20:37)
[2024-01-17] MEDS: lisinopril 20mg tablet PO SCH (20:37)
[2024-01-17] MEDS: HYDROchlorothiazide 12.5mg capsule PO SCH (20:37)
[2024-01-17] MEDS: finasteride 5mg tablet PO SCH (20:38)
[2024-01-18 01:00] VITALS: BP 136/57
[2024-01-18 02:00] VITALS: BP 146/64; PULSE 92; RESP 22; TEMP 98.7; O2SAT 97
[2024-01-18 06:00] VITALS: BP 138/66; PULSE 95; RESP 19; TEMP 97.8; O2SAT 96
[2024-01-18] MEDS: aspirin 81mg tab.chew PO SCH (07:18)
[2024-01-18] MEDS ORDERED: pantoprazole 40mg Tablet.DR PO SCH (08:00)
[2024-01-18] MEDS ORDERED: aspirin 81mg tab.chew PO SCH (08:00)
[2024-01-18 08:06] LABS: BASOPHILS # (AUTO) 0.1 X10'3 (0-0.2); BASOPHILS % (AUTO) 0.6 % (0-1); EOSINOPHILS % (AUTO) 0.1 % (0-6); HEMATOCRIT 42.1 % (42.0-52.0); HEMOGLOBIN 14.1 g/dl (14.0-17.9); LYMPHOCYTES # (AUTO) 1.8 X10'3 (1.1-4.8); LYMPHOCYTES % (AUTO) 18.8 % (21-51); MEAN CORPUSCULAR HEMOGLOBIN 29.7 PG (27.0-31.0); MEAN CORPUSCULAR HGB CONC 33.4 g/dL (33.0-36.5); MEAN CORPUSCULAR VOLUME 88.8 FL (78-98); MEAN PLATELET VOLUME 8.5 FL (7.4-10.4); MONOCYTES # (AUTO) 1.3 X10'3 (0-0.9); MONOCYTES % (AUTO) 14.3 % (2-12); NEUTROPHILS # (AUTO) 6.2 X10'3 (1.8-7.7); NEUTROPHILS % (AUTO) 66.2 % (42-75); PLATELET COUNT 197 X10'3 (140-440); RED BLOOD COUNT 4.75 X10'6 (4.70-6.10); RED CELL DISTRIBUTION WIDTH 13.7 % (11.5-14.5); WHITE BLOOD COUNT 9.4 X10'3 (4.5-11.0)
[2024-01-18 08:40] LABS: ALANINE AMINOTRANSFERASE 72 U/L (12-78); ALBUMIN 3.2 G/DL (3.4-5.0); ALBUMIN/GLOBULIN RATIO 0.9 (1.1-1.5); ALKALINE PHOSPHATASE 53 IU/L (46-116); ANION GAP 10 (8-16); ASPARTATE AMINO TRANSFERASE 36 U/L (10-37); BILIRUBIN,TOTAL 0.9 MG/DL (0.1-1.0); BLOOD UREA NITROGEN 16 MG/DL (7-18); BUN/CREATININE RATIO 12.6 (10.0-20.0); CALCIUM 8.3 MG/DL (8.5-10.1); CHLORIDE 104 MMOL/L (99-107); CREATININE 1.27 MG/DL (0.60-1.10); GLUCOSE 141 MG/DL (70-104); POTASSIUM 3.4 MMOL/L (3.5-5.1); PRO BRAIN NATRIURETIC PEPTIDE 282 PG/ML (0-125); SODIUM 139 MMOL/L (135-145); TOTAL CARBON DIOXIDE 25.3 MMOL/L (24-32); TOTAL PROTEIN 6.9 G/DL (6.4-8.2); eCRCL 53 ML/MIN; eGFR 57 ML/MIN
[2024-01-18 09:16] VITALS: RESP 14; O2SAT 95
== END 2024-01-18 11:00 | disposition home or self-care (01) | DRG 267 ==
LOC: PAS IN 07:21 → PCU 3S 14:32
PROVIDERS: ADMIT Internal Medicine Cardiovascular Disease; ATTEND Internal Medicine Cardiovascular Disease
PROC: B41D1ZZ Fluoroscopy of Aorta and Bilateral Lower Extremity Arteries using Low Osmolar Contrast (ICD-10-PCS; 2024-01-17)
PROC: 03HY32Z Insertion of Monitoring Device into Upper Artery, Percutaneous Approach (ICD-10-PCS; 2024-01-17)
PROC: 02RF38Z Replacement of Aortic Valve with Zooplastic Tissue, Percutaneous Approach (ICD-10-PCS; principal; 2024-01-17 10:08)
DX: I35.0 Nonrheumatic aortic (valve) stenosis (principal); Z00.6 Encounter for examination for normal comparison and control in clinical research program; E11.9 Type 2 diabetes mellitus without complications; I10 Essential (primary) hypertension; I25.10 Atherosclerotic heart disease of native coronary artery without angina pectoris
CPT/HCPCS: 33361; 36415; 71045; 71046; 76937; 80053; 81003; 82948; 83036; 83735; 83880; 85025; 85347; 85610; 85730; 86885; 86900; 86901; 86920; 87081; 93005; 93308; A4618; A6258; A6449; C1756; C1760; C1769; C1894; G0378; J0360; J0690; J1644; J1815; J2003; J2175; J2250; J2371; J2405; J2704; J2720; J3010; J3370; J3372; J3490; J7030; J7040; J7050; J7120; Q9967